=== PATIENT | male | born 1970 | race Caucasian/White ===

== ENCOUNTER 2017-01-16 17:03 | Emergency (ER) | payer BC, MEDICAID ==
[~2017-01-16] VITALS: Ht 182.9 cm; Wt 84.0 kg
[~2017-01-16 17:03] MED LIST: DIAZ2TAB PO; HYDR2TAB29 PO; PRED10TA14 PO; SENN25TA8 PO
[2017-01-16] MEDS ORDERED: ONDANSETRON 2MG/ML, 2ML ONE (17:53)
[2017-01-16] MEDS ORDERED: SODIUM CHLORIDE 0.9% 1,000ML IVBOLUS ONE (18:00)
[2017-01-16] MEDS ORDERED: SODIUM CHLORIDE FLUSH 10ML SYR IVF ONE (18:00)
[2017-01-16] MEDS ORDERED: ONDANSETRON 2MG/ML, 2ML IVPush ONE (18:00)
[2017-01-16 18:06] LABS: HEMATOCRIT 49.2 % (39.2-51.8); HEMOGLOBIN 16.6 g/dL (13.7-18.0); WHITE BLOOD COUNT 17.1 x10^3/uL (3.4-10)
[2017-01-16 18:17] LABS: BLOOD UREA NITROGEN 22 mg/dL (7-18)
[2017-01-16 18:21] LABS: ASPARTATE AMINO TRANSFERASE 15 U/L (15-37)
[2017-01-16] MEDS ORDERED: DOXYCYCLINE 100 MG in DEXTROSE 5% 250 ML IV SCH (19:00)
[2017-01-16 21:16] VITALS: BP 124/64
== END 2017-01-16 21:17 | disposition home or self-care (01) ==
LOC: ED 21:06
DX: R55 Syncope and collapse (principal); K52.9 Noninfective gastroenteritis and colitis, unspecified
CPT/HCPCS: 36415; 80053; 81003; 83605; 84145; 85025; 86793; 87040; 93005; 96361; 96365; 96366; 99285; J2405; J7030; J7060